=== PATIENT | male | born 1975 | race Two or more races ===

== ENCOUNTER 2019-03-18 06:07 | Day surgery (SDC) | payer OTHER ==
[~2019-03-18 06:07] MED LIST: COZAAR50 MG PO
== END 2019-03-18 13:30 | disposition home or self-care (01) ==
LOC: CIR.AMB 06:07
DX: K40.30 Unilateral inguinal hernia, with obstruction, without gangrene, not specified as recurrent (principal)

== ENCOUNTER 2019-06-03 06:00 | Day surgery (SDC) | payer OTHER | END 2019-06-03 12:40 | disposition home or self-care (01) | LOC: CIR.AMB 06:00 | DX: K40.30 Unilateral inguinal hernia, with obstruction, without gangrene, not specified as recurrent (principal) ==